=== PATIENT | male | born 1990 | race Caucasian/White ===

== ENCOUNTER 2019-06-27 10:36 | Emergency (ER) | payer SELFPAY ==
[~2019-06-27] VITALS: Ht 180.3 cm; Wt 81.8 kg
[2019-06-27 10:41] VITALS: PULSE 73; TEMP 98.8
[2019-06-27] MEDS ORDERED: NORCO 325 MG-51 TAB PO (14:04)
[2019-06-27] MEDS ORDERED: CEPHALEXIN500 M1 PO (14:04)
== END 2019-06-27 14:30 | disposition home or self-care (01) ==
LOC: COL.ER 10:36
DX: S61.211A Laceration without foreign body of left index finger without damage to nail, initial encounter (principal); S66.303A Unspecified injury of extensor muscle, fascia and tendon of left middle finger at wrist and hand level, initial encounter; W26.8XXA Contact with other sharp object(s), not elsewhere classified, initial encounter
CPT/HCPCS: J0690

== ENCOUNTER 2020-12-24 09:58 | Emergency (ER) | payer SELFPAY ==
[~2020-12-24] VITALS: Ht 180.3 cm; Wt 84.1 kg
[~2020-12-24 09:58] MED LIST: CEPHALEXIN500 M1 PO; NORCO 325 MG-51 TAB PO
[2020-12-24 10:03] VITALS: TEMP 98.2
[2020-12-24 16:05] VITALS: BP 133/74; PULSE 70
== END 2020-12-24 16:05 | disposition home or self-care (01) ==
LOC: COL.ER 09:58
PROVIDERS: Nurse Practitioner
DX: T58.91XA Toxic effect of carbon monoxide from unspecified source, accidental (unintentional), initial encounter (principal)